=== PATIENT | male | born 1970 | race American Indian/Alaskan Native ===

== ENCOUNTER 2017-10-15 12:31 | Emergency (ER) | payer BC ==
[2017-10-15 12:35] VITALS: BP 118/63
--- NOTE | 2017-10-15 14:49 | Emergency Department Report ---
Minor Respiratory - HPI Chief Complaint: Upper Respiratory Infection Stated Complaint: FLU LIKE SYMPTOMS Time Seen by Provider: 10/15/17 14:37 Duration: 5 Days Pain Location: Facial Minor Respiratory: Yes Rhinorrhea, Yes Able to Tolerate Fluids, Yes Cough, No Sore Throat, No Ear Pain, No Sick Contacts, No Hemoptysis, No Chest Pain, No Shortness of Breath, No Fever Other History: She also is having considerable frontal headache and pressure when he moves his head. States 8 out of 10 in severity. ED Review of Systems ROS: Stated complaint: FLU LIKE SYMPTOMS Other details as noted in HPI Comment: All other systems reviewed and negative ED Past Medical Hx - Past Medical History Additional medical history: LOWER BACK PAIN - Surgical History Past Surgical History?: No - Social History Smoking Status: Current Every Day Smoker Substance Use Type: Alcohol, Marijuana - Medications Home Medications: Home Medications Medication Instructions Recorded Confirmed Last Taken Type Acetaminophen/Codeine 1 tab PO Q6H PRN #10 tab 10/14/14 Unknown Rx [Acetaminophen-Codeine #3 TAB] Prednisone [Prednisone 10 mg 10 mg PO .TAPER #1 tab.ds.pk 10/14/14 Unknown Rx (6-Day Pack, 21 Tabs)] Amoxicillin/Potassium Clav 1 each PO BID #20 tablet 10/15/17 Unknown Rx [Augmentin 875-125 Tablet] HYDROcodone/APAP 5-325 [Leon 1 each PO Q6HR PRN #14 tablet 10/15/17 Unknown Rx 5-325 mg TAB] Ibuprofen [Motrin 600 MG tab] 600 mg PO Q8H PRN #20 tablet 10/15/17 Unknown Rx Minor Respiratory Exam - Exam General: Vital signs noted. No distress. Alert and acting appropriately. HEENT: Yes Moist Mucous Membranes, Yes Frontal Tenderness, No Pharyngeal Erythema, No Pharyngeal Exudates, No Rhinorrhea, No Conjuctival Injection, No Maxillary Tenderness Ear: Neither TM Bulge, Neither TM Erythema, Neither EAC Pain, Neither EAC Discharge Neck: Yes Supple, No Adenopathy Lungs: Yes Good Air Exchange, No Wheezes, No Ronchi, No Stridor, No Cough, No Labored Respirations, No Retractions, No Use of Accessory Muscles, No Other Abnormal Lung Sounds Heart: Yes Regular, No Murmur Abdomen: Yes Normal Bowel Sounds, No Tenderness, No Peritoneal Signs Skin: No Rash, No Edema Neurologic: Alert and oriented, no deficits. Musculoskeletal: Unremarkable. ED Course Vital Signs 10/15/17 10/15/17 12:30 12:35 Temperature 98.8 F Pulse Rate 78 Respiratory 16 Rate Blood Pressure 118/63 O2 Sat by Pulse 99 Oximetry Critical care attestation.: If time is entered above; I have spent that time in minutes in the direct care of this critically ill patient, excluding procedure time. ED Disposition Clinical Impression: Acute sinusitis Qualifiers: Sinusitis location: frontal Recurrence: not specified as recurrent Qualified Code(s): J01.10 - Acute frontal sinusitis, unspecified Disposition: DC- TO HOME OR SELFCARE Is pt being admited?: No Does the pt Need Aspirin: No Condition: Stable Instructions: Sinusitis (ED) Prescriptions: Amoxicillin/Potassium Clav [Augmentin 875-125 Tablet] 1 each PO BID #20 tablet HYDROcodone/APAP 5-325 [Leon 5-325 mg TAB] 1 each PO Q6HR PRN #14 tablet PRN Reason: Pain Ibuprofen [Motrin 600 MG tab] 600 mg PO Q8H PRN #20 tablet PRN Reason: Pain Referrals: PRIMARY CARE,MD [Primary Care Provider] - 3-5 Days Forms: Work/School Release Form(ED)
== END 2017-10-15 15:09 | disposition home or self-care (01) ==
LOC: ED 12:31
DX: J01.10 Acute frontal sinusitis, unspecified (principal); F17.200 Nicotine dependence, unspecified, uncomplicated; F12.10 Cannabis abuse, uncomplicated
CPT/HCPCS: 99282